=== PATIENT | male | born 1995 | race African-American/Black ===

== ENCOUNTER 2016-05-28 00:47 | Emergency (ER) | payer OTHER ==
[~2016-05-28] VITALS: Ht 165.1 cm; Wt 81.6 kg
[2016-05-28 01:14] VITALS: BP_SYST 108
[2016-05-28] MEDS ORDERED: NACL 0.9% 1,000 ML IV ONE (01:35)
[2016-05-28] MEDS ORDERED: ONDANSETRON HCL 4 MG/2 ML VIAL IVP ONE (01:45)
[2016-05-28] MEDS ORDERED: KETOROLAC TROMETHAMINE 30 MG VIAL IVP ONE (01:45)
[2016-05-28 02:10] LABS: BASOPHILS # (AUTO) 0.2 K/uL (0.0-0.2); BASOPHILS % (AUTO) 1.8 % (0.0-2.0); EOSINOPHILS % (AUTO) 0.5 % (0.0-4.0); HEMATOCRIT 41.8 % (36-54); HEMOGLOBIN 14.7 g/dL (14.0-18.0); LYMPHOCYTES # (AUTO) 0.6 K/uL (1.0-5.5); LYMPHOCYTES % (AUTO) 6.1 % (20.5-51.5); MEAN CORPUSCULAR HEMOGLOBIN 31 pg (27-31); MEAN CORPUSCULAR HGB CONC 35 % (32-36); MEAN CORPUSCULAR VOLUME 90 fL (79.0-98.0); MONOCYTES # (AUTO) 0.6 K/uL (0.0-1.0); MONOCYTES % (AUTO) 5.9 % (1.7-9.3); NEUTROPHILS % (AUTO) 85.7 % (40.0-70.0); PLATELET COUNT (AUTO) 150 K/uL (130-430); RED BLOOD CELL COUNT(AUTO) 4.68 MIL/uL (4.2-6.2); RED CELL DISTRIBUTION WIDTH 12.5 % (9.0-15.0); WHITE BLOOD COUNT (AUTO) 9.4 K/uL (4.8-10.8)
[2016-05-28 02:20] LABS: CALCIUM 8.8 mg/dL (8.4-11.0); CREATININE 0.88 mg/dL (0.55-1.30); POTASSIUM 4.3 mmol/L (3.5-5.1)
[2016-05-28 02:24] LABS: TOTAL BILIRUBIN 1.4 mg/dL (0.0-1.0); TOTAL PROTEIN, SERUM 7.5 g/dL (6.4-8.3)
[2016-05-28 03:23] VITALS: BP_SYST 122
== END 2016-05-28 03:23 | disposition home or self-care (01) ==
LOC: SED 00:47
DX: R11.2 Nausea with vomiting, unspecified (principal); R10.31 Right lower quadrant pain; R19.7 Diarrhea, unspecified; Z88.2 Allergy status to sulfonamides
CPT/HCPCS: 36415; 74176; 80053; 85025; 96361; 96374; 96375; 99285; J1885; J2405; J7030

== ENCOUNTER 2017-08-24 16:15 | Emergency (ER) | payer OTHER ==
[~2017-08-24] VITALS: Ht 162.6 cm; Wt 86.2 kg
[2017-08-24 16:22] VITALS: BP_SYST 134
[2017-08-24] MEDS ORDERED: KETOROLAC TROMETHAMINE 60 MG/2 ML VIAL IM ONE (16:45)
[2017-08-24 16:47] LABS: BILIRUBIN,URINE NEGATIVE (NEGATIVE); BLOOD, URINE NEGATIVE (NEGATIVE); CLARITY/URINE CLEAR (CLEAR); COLOR,URINE YELLOW (YELLOW); GLUCOSE,URINE NEGATIVE (NEGATIVE); KETONES,URINE NEGATIVE (NEGATIVE); LEUKOCYTE ESTERASE ,URINE NEGATIVE (NEGATIVE); NITRITE, URINE NEGATIVE (NEGATIVE); PH,URINE 5.5 (5.0-8.0); PROTEIN URINE NEGATIVE (NEGATIVE); UROBILINOGEN,URINE 0.2 (0.2-1.0)
[2017-08-24 17:55] VITALS: BP_SYST 134
== END 2017-08-24 17:55 | disposition home or self-care (01) ==
LOC: SED 16:15
DX: S39.012A Strain of muscle, fascia and tendon of lower back, initial encounter (principal); Z88.2 Allergy status to sulfonamides; X58.XXXA Exposure to other specified factors, initial encounter; Y93.89 Activity, other specified; Y92.89 Other specified places as the place of occurrence of the external cause; Y99.8 Other external cause status
CPT/HCPCS: 72100; 81003; 96372; 99285; J1885

== ENCOUNTER 2021-05-25 20:13 | Emergency (ER) | payer BC, OTHER ==
[~2021-05-25] VITALS: Ht 167.6 cm; Wt 74.8 kg
[2021-05-25 20:43] VITALS: BP_SYST 119
[2021-05-25] MEDS ORDERED: ONDANSETRON HCL 4 MG/2 ML VIAL IVP ONE (20:45)
[2021-05-25] MEDS ORDERED: FAMOTIDINE PF 20 MG/2 ML VIAL IVP ONE (20:45)
[2021-05-25] MEDS ORDERED: NACL 0.9% 1,000 ML IV ONE (20:45)
[2021-05-25] MEDS ORDERED: MAG HYDROX/AL HYDROX/SIMETH 30 ML, DICYCLOMINE HCL 20 MG, LIDOCAINE VISCOUS 2% 15ML (PO... PO ONE ×3 (20:45)
[2021-05-25] MEDS ORDERED: ONDANSETRON HCL 4 MG/2 ML VIAL ONE (21:50)
[2021-05-25 21:58] LABS: BASOPHILS % (AUTO) 0.2 % (0.0-2.0); EOSINOPHILS % (AUTO) 0.2 % (0.0-4.0); HEMATOCRIT 46.4 % (36-54); HEMOGLOBIN 15.8 g/dL (14.0-18.0); LYMPHOCYTES # (AUTO) 0.1 K/uL (1.0-5.5); LYMPHOCYTES % (AUTO) 1.8 % (20.5-51.5); MEAN CORPUSCULAR HEMOGLOBIN 31 pg (27-31); MEAN CORPUSCULAR HGB CONC 34 % (32-36); MEAN CORPUSCULAR VOLUME 89 fL (79.0-98.0); MONOCYTES # (AUTO) 0.3 K/uL (0.0-1.0); MONOCYTES % (AUTO) 3.8 % (1.7-9.3); NEUTROPHILS # (AUTO) 7.6 K/uL (1.8-7.7); PLATELET COUNT (AUTO) 165 K/uL (130-430); RED BLOOD CELL COUNT(AUTO) 5.19 MIL/uL (4.2-6.2); RED CELL DISTRIBUTION WIDTH 12.6 % (9.0-15.0); WHITE BLOOD COUNT (AUTO) 8.1 K/uL (4.8-10.8)
[2021-05-25 22:40] LABS: CALCIUM 9.1 mg/dL (8.4-11.0); CREATININE 0.97 mg/dL (0.55-1.30); POTASSIUM 4.6 mmol/L (3.5-5.1)
[2021-05-25 22:45] LABS: ALBUMIN 3.8 g/dL (3.4-4.8); TOTAL BILIRUBIN 1.7 mg/dL (0.0-1.0)
[2021-05-25 23:51] LABS: BILIRUBIN,URINE NEGATIVE (NEGATIVE); BLOOD, URINE NEGATIVE (NEGATIVE); CLARITY/URINE CLEAR (CLEAR); COLOR,URINE YELLOW (YELLOW); GLUCOSE,URINE NEGATIVE (NEGATIVE); KETONES,URINE 2+ (NEGATIVE); LEUKOCYTE ESTERASE ,URINE NEGATIVE (NEGATIVE); NITRITE, URINE NEGATIVE (NEGATIVE); PH,URINE 6.5 (5.0-8.0); PROTEIN URINE NEGATIVE (NEGATIVE)
[2021-05-26] MEDS ORDERED: ONDA-8 TL (00:23)
[2021-05-26 00:40] VITALS: BP_SYST 114
== END 2021-05-26 00:46 | disposition home or self-care (01) ==
LOC: SED 20:13
DX: K29.70 Gastritis, unspecified, without bleeding (principal)
CPT/HCPCS: 36415; 80053; 81003; 83690; 85025; 96361; 96374; 96375; 99284; J2001; J2405; J3490; J7030